=== PATIENT | female | born 2000 | race African-American/Black ===

== ENCOUNTER 2021-10-10 06:43 | Emergency (ER) | payer MEDICAID ==
[~2021-10-10] VITALS: Ht 188 cm; Wt 84.9 kg
[2021-10-10 06:54] VITALS: BP 98/61
[2021-10-10] MEDS ORDERED: CYCL5TAB MT (11:12)
[2021-10-10] MEDS ORDERED: IBUP-2029 MT (11:12)
== END 2021-10-10 08:06 | disposition left against medical advice (07) ==
LOC: ER 06:43
DX: Z53.21 Procedure and treatment not carried out due to patient leaving prior to being seen by health care provider (principal)

== ENCOUNTER 2021-10-10 10:08 | Emergency (ER) | payer MEDICAID ==
[~2021-10-10] VITALS: Ht 177.8 cm; Wt 79.0 kg
[2021-10-10] MEDS ORDERED: CYCLOBENZAPRINE 10MG TABLET PO ONE (10:30)
[2021-10-10] MEDS ORDERED: KETOROLAC 60MG/2ML VIAL IM ONE (10:30)
[2021-10-10 10:36] VITALS: BP 106/65
[2021-10-10] MEDS ORDERED: CYCL5TAB MT (11:12)
[2021-10-10] MEDS ORDERED: IBUP-2029 MT (11:12)
== END 2021-10-10 11:28 | disposition home or self-care (01) ==
LOC: ER 10:31
DX: M54.50 Low back pain, unspecified (principal)
CPT/HCPCS: 81025; 96372; 99283; J1885

== ENCOUNTER 2022-04-30 15:55 | Emergency (ER) | payer MEDICAID, OTHER ==
[~2022-04-30] VITALS: Ht 188 cm; Wt 86.0 kg
[~2022-04-30 15:55] MED LIST: CYCL5TAB MT; IBUP-2029 MT
[2022-04-30 16:00] VITALS: BP 130/82
[2022-04-30 18:15] LABS: CLARITY URINE CLOUDY (CLEAR); COLOR URINE YELLOW (YELLOW); KETONES URINE NEGATIVE (NEGATIVE); LEUKOCYTE ESTERASE URINE NEGATIVE (NEGATIVE); NITRITE URINE NEGATIVE (NEGATIVE); OCCULT BLOOD URINE NEGATIVE (NEGATIVE); PROTEIN URINE NEGATIVE (NEGATIVE); SPECIFIC GRAVITY URINE 1.026 (1.005-1.030)
[2022-05-03 04:09] LABS: NEISSERIA GONORRHOEAE NAA Negative (Negative)
== END 2022-04-30 19:05 | disposition left against medical advice (07) ==
LOC: ER 15:55
DX: N89.8 Other specified noninflammatory disorders of vagina (principal); Z20.2 Contact with and (suspected) exposure to infections with a predominantly sexual mode of transmission
CPT/HCPCS: 81003; 81025; 87491; 87591; 99283; Z7610

== ENCOUNTER 2022-06-12 07:05 | Emergency (ER) | payer OTHER ==
[~2022-06-12] VITALS: Ht 188 cm; Wt 79.0 kg
[2022-06-12 07:20] VITALS: BP 119/83
[2022-06-12] MEDS ORDERED: ACETAMINOPHEN 325MG TABLET PO ONE (08:00)
[2022-06-12] MEDS ORDERED: ONDANSETRON HCL 4MG TABLET PO ONE (08:00)
[2022-06-12] MEDS ORDERED: TOPUD PO (08:43)
[2022-06-12] MEDS ORDERED: ONDA4TAB50 PO (08:43)
== END 2022-06-12 09:14 | disposition home or self-care (01) ==
LOC: ER 07:05
DX: R11.2 Nausea with vomiting, unspecified (principal); R10.9 Unspecified abdominal pain
CPT/HCPCS: 81025; 99283; Q0162

== ENCOUNTER 2024-12-21 16:22 | Emergency (ER) | payer MEDICAID, OTHER ==
[~2024-12-21] VITALS: Ht 190.5 cm; Wt 87.0 kg
[~2024-12-21 16:22] MED LIST changes: -CYCL5TAB MT; +CYCL5TAB3 MT; +IBUP-1455 MT; -IBUP-2029 MT; +ONDA4TAB50 PO; +TOPUD PO
[2024-12-21 16:45] VITALS: TEMP 36.9; O2SAT 99
[2024-12-21 17:07] VITALS: BP 128/78; PULSE 70; RESP 16; O2SAT 98
== END 2024-12-21 18:39 | disposition home or self-care (01) ==
LOC: ER 16:22
DX: O20.9 Hemorrhage in early pregnancy, unspecified (principal); O26.891 Other specified pregnancy related conditions, first trimester; O99.511 Diseases of the respiratory system complicating pregnancy, first trimester; R10.20 Pelvic and perineal pain unspecified side; Z3A.08 8 weeks gestation of pregnancy
CPT/HCPCS: 81025; 84702; 36415; 76801; 76817; 99284; Z7610; A4606

== ENCOUNTER 2024-12-30 14:28 | Emergency (ER) | payer MEDICAID ==
[~2024-12-30] VITALS: Ht 190.5 cm; Wt 87.0 kg
[2024-12-30 14:38] VITALS: BP 124/62; PULSE 58; RESP 18; TEMP 36.8; O2SAT 99
[2024-12-30 15:41] LABS: GLUCOSE URINE NEGATIVE (NEGATIVE); KETONES URINE 2+ (NEGATIVE); LEUKOCYTE ESTERASE URINE NEGATIVE (NEGATIVE); NITRITE URINE NEGATIVE (NEGATIVE); OCCULT BLOOD URINE TRACE (NEGATIVE); PH URINE 5.5 (4.5-8.0); PROTEIN URINE TRACE (NEGATIVE); SPECIFIC GRAVITY URINE 1.031 (1.005-1.030); UROBILINOGEN URINE 1.0 E.U./dL (0.2-1.0)
[2024-12-30 16:11] LABS: COLOR URINE YELLOW (YELLOW)
[2024-12-30 16:12] LABS: CLARITY URINE SL HAZY (CLEAR)
[2024-12-30 16:13] LABS: BACTERIA URINE TRACE; MUCUS URINE TRACE /lpf (< = 2+); RBC URINE NONE SEEN /hpf (0-2); SQUAMOUS EPITHELIAL CELL URINE 1+ /lpf (RARE/1+); WBC URINE 0-2 /hpf (0-2)
[2024-12-30 16:34] LABS: BASOPHILS % 0.5 % (0.0-2.0); EOSINOPHILS % 1.4 % (0.0-5.0); HEMATOCRIT. 35.0 % (36.0-48.0); HEMOGLOBIN. 11.8 g/dL (12.0-16.0); LYMPHOCYTES % 28.9 % (20.0-50.0); MEAN PLATELET VOLUME 8.4 fl (7.4-10.4); MONOCYTES % 9.5 % (2.0-8.0); NEUTROPHILS % 59.7 % (40.0-76.0); PLATELET 206 x1000/uL (130-400); RED BLOOD CELL COUNT 4.23 mill/uL (4.2-5.4); RED CELL DISTRIBUTION WIDTH 13.1 % (11.6-14.6)
[2024-12-30 16:44] LABS: HCG SCREEN POSITIVE
[2024-12-30 16:46] LABS: CREATININE 0.7 mg/dL (0.6-1.0); UREA NITROGEN BLOOD 8 mg/dL (9-23)
[2024-12-30 16:49] LABS: INR 1.1
[2024-12-30 16:59] LABS: B-HCG QUANTITATIVE 13178 mIU/mL (<6)
== END 2024-12-30 17:52 | disposition home or self-care (01) ==
LOC: ER 14:28 → EDBEDREQ 15:11 → ER 17:52 → CMPBEDREQ 12-31 07:20
DX: O20.8 Other hemorrhage in early pregnancy (principal); O99.511 Diseases of the respiratory system complicating pregnancy, first trimester; R10.20 Pelvic and perineal pain unspecified side; Z3A.09 9 weeks gestation of pregnancy
CPT/HCPCS: 36415; 76801; 80048; 81003; 81025; 84702; 84703; 85025; 86850; 86900; 99284

== ENCOUNTER 2025-01-14 20:21 | Emergency (ER) | payer MEDICAID ==
[~2025-01-14] VITALS: Ht 190.5 cm; Wt 88.0 kg
[2025-01-14 20:32] VITALS: O2SAT 100
[2025-01-14 21:05] VITALS: BP 118/64; PULSE 60; RESP 16; TEMP 36.9; O2SAT 99
[2025-01-14 23:23] LABS: BASOPHILS % 0.5 % (0.0-2.0); EOSINOPHILS % 1.7 % (0.0-5.0); HEMATOCRIT. 35.3 % (36.0-48.0); HEMOGLOBIN. 11.9 g/dL (12.0-16.0); LYMPHOCYTES % 28.7 % (20.0-50.0); MEAN PLATELET VOLUME 7.8 fl (7.4-10.4); MONOCYTES % 8.8 % (2.0-8.0); NEUTROPHILS % 60.3 % (40.0-76.0); PLATELET 216 x1000/uL (130-400); RED BLOOD CELL COUNT 4.20 mill/uL (4.2-5.4); RED CELL DISTRIBUTION WIDTH 13.8 % (11.6-14.6)
[2025-01-14 23:50] LABS: CREATININE 0.7 mg/dL (0.6-1.0)
[2025-01-14 23:51] LABS: UREA NITROGEN BLOOD 9 mg/dL (9-23)
[2025-01-14 23:52] LABS: ASPARTATE AMINOTRANSFERASE 16 IU/L (<34)
[2025-01-14 23:53] LABS: BILIRUBIN DIRECT < 0.1 mg/dL (<=3.0); BILIRUBIN TOTAL 0.2 mg/dL (0.1-1.0); PROTEIN TOTAL 6.4 g/dL (6.0-8.3)
[2025-01-15 00:08] LABS: HCG SCREEN POSITIVE
[2025-01-15 00:12] LABS: B-HCG QUANTITATIVE 41366 mIU/mL (<6)
== END 2025-01-14 23:52 | disposition left against medical advice (07) ==
LOC: ER 20:21
DX: O20.9 Hemorrhage in early pregnancy, unspecified (principal); J45.909 Unspecified asthma, uncomplicated; N89.8 Other specified noninflammatory disorders of vagina; Z88.5 Allergy status to narcotic agent; Z3A.00 Weeks of gestation of pregnancy not specified
CPT/HCPCS: 36415; 76830; 76856; 80048; 80076; 84702; 84703; 85025; 86850; 86900; 99284

== ENCOUNTER 2025-01-19 22:03 | Emergency (ER) | payer MEDICAID ==
[~2025-01-19] VITALS: Ht 190.5 cm; Wt 89.0 kg
[2025-01-19 22:11] VITALS: O2SAT 98
[2025-01-19 23:07] LABS: BASOPHILS % 0.4 % (0.0-2.0); EOSINOPHILS % 0.8 % (0.0-5.0); HEMATOCRIT. 33.4 % (36.0-48.0); HEMOGLOBIN. 11.2 g/dL (12.0-16.0); LYMPHOCYTES % 19.0 % (20.0-50.0); MEAN PLATELET VOLUME 8.0 fl (7.4-10.4); MONOCYTES % 6.5 % (2.0-8.0); NEUTROPHILS % 73.3 % (40.0-76.0); PLATELET 268 x1000/uL (130-400); RED BLOOD CELL COUNT 4.00 mill/uL (4.2-5.4); RED CELL DISTRIBUTION WIDTH 13.8 % (11.6-14.6)
[2025-01-20] MEDS: SODIUM CHLORIDE 0.9% 1,000 ML IV ONE (01:14)
[2025-01-20 02:10] VITALS: BP 111/60; PULSE 69; RESP 19; TEMP 36.1; O2SAT 98
== END 2025-01-20 02:48 | disposition left against medical advice (07) ==
LOC: ER 22:03
DX: N93.9 Abnormal uterine and vaginal bleeding, unspecified (principal); Z53.29 Procedure and treatment not carried out because of patient's decision for other reasons; Z98.890 Other specified postprocedural states; Z79.899 Other long term (current) drug therapy; Z88.5 Allergy status to narcotic agent
CPT/HCPCS: 99284; 76830; 76856; 84702; 85025; 86850; 86900; 86901; 36415; 96360; J7030